=== PATIENT | male | born 1975 | race Hispanic/Latino ===

== ENCOUNTER 2022-06-21 18:24 | Emergency (ER) | payer SELFPAY ==
[~2022-06-21] VITALS: Ht 180.3 cm; Wt 117.9 kg
[2022-06-21] MEDS ORDERED: HYDRALAZINE HCL 20 MG/ML VIAL IV STA (18:43)
[2022-06-21] MEDS ORDERED: SODIUM CHLORIDE 0.9% 1000ML 1,000 ML IV ONE (18:45)
[2022-06-21] MEDS ORDERED: ASPIRIN 81 MG CHEW TAB PO ONE (18:45)
[2022-06-21] MEDS ORDERED: ASPIRIN 81 MG CHEW TAB ONE (19:01)
[2022-06-21] MEDS ORDERED: SODIUM CHLORIDE 0.9% 1000ML 1,000 ML ONE (19:01)
[2022-06-21] MEDS ORDERED: HYDRALAZINE HCL 20 MG/ML VIAL ONE (19:02)
== END 2022-06-21 22:52 | disposition home or self-care (01) ==
LOC: FSED 18:32
DX: R07.89 Other chest pain (principal); R03.0 Elevated blood-pressure reading, without diagnosis of hypertension; F14.10 Cocaine abuse, uncomplicated; R94.31 Abnormal electrocardiogram [ECG] [EKG]; F17.210 Nicotine dependence, cigarettes, uncomplicated
CPT/HCPCS: 71045; 80053; 81003; 82553; 84484; 85025; 93005; 99284; J0360; J7030